=== PATIENT | male | born 1965 | race African-American/Black ===

== ENCOUNTER → 2020-08-02 13:40 | Outpatient (CLI) | payer BC, SELFPAY ==
--- NOTE | 2020-08-02 13:44 | CA_ITS ---
APPROVED REPORT EXAM: Comprehensive 2D, Doppler, and color-flow Echocardiogram Chief Scientific Officer: Pallavi Pineda CRT Ht: 6 ft 2 in Wt: 247lbs BSA: 2.38 BP: 174/96 mmHg Indications: CP, ex smoker, HTN, SOB, Abn EKG 2D Dimensions LVOT 2.09 cm (M/F) 1.5-2.5 LVEF (Smith's) 50.10 % M: 52 - 72 LV Volume 134.20 mL M: 62 - 150 LV Volume Index 56.62 mL/m2 M: 34 - 74 M-Mode Dimensions RVDd 3.27 cm (0.9-2.6) LA Diam 4.00 cm (1.9-4.0) LVDd 5.14 cm (3.5-5.7) Ao Diam 3.01 cm (2.0-3.7) LVDs 3.99 cm (3.5-5.7) IVSd 0.99 cm (0.6-1.1) PWd 0.95 cm (0.6-1.1) EF (Teich) 44.80% FS 22.40% EDV (Teich) 126.10 mL ESV (Teich) 69.60 mL LV Diastology E Decel Time 223.00 (160-240 msec) E/A Ratio 1.0 MED E' 8.20 (< 7 cm/sec) E'/MED E' Ratio 7.79 (>14) LAT E' 11.80 (<10 cm/sec) E/LAT E' Ratio 5.42 (>14) Mitral Valve MV E Max Bryan. 64.00 (40-130 cm/s) MV A Velocity 63.00 (40-130 cm/s) E/A Ratio 1.01 MV Decel. Time 223.00 (160-240 ms) MV PHT 65.00 ms Left Ventricle Left atrium is mildly enlarged, left ventricle is normal size, mild concentric left ventricular hypertrophy, visually estimated ejection fraction 55% with no regional wall motion abnormality, grade 1 diastolic dysfunction seen without tissue Doppler evidence of raise left atrial pressure. Right Ventricle Right atrium and right ventricle are qualitatively normal size and contractility. Aortic Valve Aortic valve is minimally thickened and fibrosed. There is no aortic stenosis or aortic insufficiency. Mitral Valve Mitral valve is grossly normal, there is mild mitral regurgitation. Tricuspid Valve Tricuspid valve grossly normal, there is mild tricuspid regurgitation, tricuspid regurgitation jet velocity is inadequate for calculation of the right ventricular systolic pressure. Pulmonic Valve Pulmonic valve is minimally fibrosed, there is no pulmonic stenosis or pulmonic insufficiency. Great Vessels Aortic root is normal size. Pericardium No significant pericardial effusion noted. Conclusion 1. Mildly enlarged left atrium, normal left ventricular size, mild concentric left ventricular hypertrophy, visually estimated ejection fraction 55% with no regional wall motion abnormality, grade 1 diastolic dysfunction seen without tissue Doppler evidence of raise left atrial pressure. 2. Mild mitral and tricuspid regurgitation. 3. No significant pericardial effusion noted. Electronically signed by : Sixto Singh, 08/03/2020 05:50:01
[2020-08-02 15:12] LABS: Chloride 103 mmol/L (98-107); Potassium 3.5 mmoL/L (3.5-5.1); Sodium 141 mmol/L (136-145)
[2020-08-02 15:15] LABS: Anion Gap 13.5 mEq/L (5-15); Blood Urea Nitrogen 13 mg/dl (9-20); Calcium 9.9 mg/dl (8.4-10.2); Carbon Dioxide 28 mmol/L (22.0-30.0); Estimated Glomerular Filt Rate 78 ml/min (>60); GFR (African American) 94 ML/MIN (>60); Glucose 98 mg/dl (74-100)
[2020-08-02 15:25] LABS: NT Pro Brain Natriuretic Pep. 87.2 pg/mL (0-125)
[2020-08-02 15:46] LABS: Free T4 (Free Thyroxine) 0.91 ng/dl (0.78-2.19)
[2020-08-02 15:47] LABS: Thyroid Stimulating Hormone 2.48 uIU/mL (0.465-4.68)
== END ==
PROVIDERS: PCP Family Medicine; Visit Provider Internal Medicine Cardiovascular Disease
DX: R07.9 Chest pain, unspecified (principal); R06.00 Dyspnea, unspecified; I10 Essential (primary) hypertension; R94.31 Abnormal electrocardiogram [ECG] [EKG]; R06.83 Snoring; R40.0 Somnolence; Z87.891 Personal history of nicotine dependence; Z79.899 Other long term (current) drug therapy
CPT/HCPCS: 36415; 80048; 83880; 84439; 84443; 93306; 95806

== ENCOUNTER → 2020-08-22 07:49 | Outpatient (CLI) | payer SELFPAY ==
--- NOTE | 2020-08-22 07:49 | CT_ITS ---
PROCEDURE: CT HEART W CALCIUM SCORE CLINICAL HISTORY: chest pain 55-year-old COMPARISON: No exams were available for comparison TECHNIQUE: Axial images obtained with sagittal and coronal reformats. All CT scans at the facility use one or more dose reduction, viz: automated exposure control, ma/kV adjustment per patient size (including targeted exams where dose is matched to indication, i.e. head), or iterative reconstruction technique. FINDINGS: Overall coronary Artery Calcium Score is 0. All vessels surveyed with computer analysis, no calcified plaque No identifiable atherosclerotic plaque.-This corresponds with very low cardiovascular disease risk but IMPRESSION: Overall coronary Artery Calcium Score is 0. No identifiable calcified the atherosclerotic plaque.-This corresponds with very low cardiovascular disease risk Dictated by: Kris Loyd MD 08/23/2020 14:14 Kris Loyd MD in [place] 08/23/2020 14:14
== END ==
PROVIDERS: PCP Family Medicine; Visit Provider Internal Medicine Cardiovascular Disease
DX: Z13.6 Encounter for screening for cardiovascular disorders (principal); R07.9 Chest pain, unspecified; R06.00 Dyspnea, unspecified; I10 Essential (primary) hypertension; G47.33 Obstructive sleep apnea (adult) (pediatric)
CPT/HCPCS: 75571

== ENCOUNTER → 2022-02-16 10:06 | Outpatient (CLI) | payer BC, SELFPAY ==
[2022-02-16 10:49] LABS: Basophils # 0.1 K/mm3 (0-0.2); Basophils % 1.5 % (0.1-2.0); Eosinophils # 0.1 K/mm3 (0.0-0.4); Eosinophils % 3.7 % (0.1-12.0); Hematocrit 45.8 % (42.0-52.0); Hemoglobin 15.1 g/dL (14.1-18.0); Lymphocytes # 1.2 K/mm3 (0.7-4.5); Lymphocytes % 33.7 % (10-50); Mean Corpuscular Hemoglobin 30.3 pg (27.0-31.2); Mean Corpuscular Volume 91.6 fl (80-94); Mean Platelet Volume 10.1 fl (7.4-10.4); Monocytes # 0.4 K/mm3 (0.1-1.0); Monocytes % 9.9 % (1.7-9.3); Neutrophils # 1.8 K/mm3 (1.8-7.8); Neutrophils % 51.2 % (37.0-80.0); Platelet Count 210 K/mm3 (142-424); Red Cell Distribution Width 13.7 % (11.5-17.5); White Blood Count 3.5 K/mm3 (4.8-10.8)
[2022-02-16 11:16] LABS: Alanine Aminotransferase 42 U/L (12-78); Albumin Level 4.4 g/dl (3.5-5.0); Alkaline Phosphatase 104 U/L (38-126); Anion Gap 10.9 mEq/L (5-15); Aspartate Amino Transferase 42 U/L (17-59); Bilirubin,Indirect 0.5 mg/dL (0.0-0.9); Bilirubin,Total 0.5 mg/dl (0.2-1.3); Bilirubin,Unconjugated 0.8 mg/dL (0.0-1.1); Blood Urea Nitrogen 13 mg/dl (9-20); Calcium 9.5 mg/dl (8.4-10.2); Carbon Dioxide 30 mmol/L (22.0-30.0); Chloride 103 mmol/L (98-107); Chol/HDL Ratio 4.9 (1-3.5); Cholesterol 214 mg/dl (140-200); Estimated Glomerular Filt Rate 87 ml/min (>60); GFR (African American) 106 ML/MIN (>60); Glucose 106 mg/dl (74-100); HDL Cholesterol 44 mg/dl (40-60); Magnesium 1.9 mg/dl (1.6-2.3); Potassium 3.9 mmoL/L (3.5-5.1); Sodium 140 mmol/L (136-145); Total Protein,Serum 7.1 g/dl (6.3-8.2); Triglycerides 104 mg/dl (30-150); VLDL Cholesterol 21 mg/dL (0-40)
[2022-02-16 11:35] LABS: Free T4 (Free Thyroxine) 0.97 ng/dl (0.78-2.19)
[2022-02-16 11:47] LABS: Thyroid Stimulating Hormone 1.93 uIU/mL (0.465-4.68)
== END ==
PROVIDERS: PCP Family Medicine; Visit Provider Internal Medicine Cardiovascular Disease
DX: I10 Essential (primary) hypertension (principal); Z79.899 Other long term (current) drug therapy
CPT/HCPCS: 36415; 80048; 80061; 80076; 83735; 84439; 84443; 85025

== ENCOUNTER → 2023-05-02 10:04 | Outpatient (CLI) | payer BC, SELFPAY ==
[2023-05-02 10:30] LABS: Basophils % 0.7 % (0.1-2.0); Eosinophils # 0.1 K/mm3 (0.0-0.4); Eosinophils % 4.4 % (0.1-12.0); Hematocrit 46.4 % (42.0-52.0); Hemoglobin 15.5 g/dL (14.1-18.0); Lymphocytes # 0.9 K/mm3 (0.7-4.5); Lymphocytes % 29.2 % (10-50); Mean Corpuscular HGB Conc 33.4 g/dL (31.8-35.4); Mean Corpuscular Hemoglobin 29.7 pg (27.0-31.2); Mean Corpuscular Volume 88.9 fl (80-94); Mean Platelet Volume 10.4 fl (7.4-10.4); Monocytes # 0.3 K/mm3 (0.1-1.0); Monocytes % 10.3 % (1.7-9.3); Neutrophils # 1.7 K/mm3 (1.8-7.8); Neutrophils % 55.3 % (37.0-80.0); Platelet Count 196 K/mm3 (142-424); Red Blood Count 5.22 M/mm3 (4.60-6.20); Red Cell Distribution Width 13.6 % (11.5-17.5); White Blood Count 3.1 K/mm3 (4.8-10.8)
[2023-05-02 10:46] LABS: Chloride 106 mmol/L (98-107); Sodium 140 mmol/L (136-145)
[2023-05-02 10:47] LABS: Potassium 3.7 mmoL/L (3.5-5.1)
[2023-05-02 10:49] LABS: Alanine Aminotransferase 43 U/L (12-78); Albumin Level 4.2 g/dl (3.5-5.0); Alkaline Phosphatase 118 U/L (38-126); Anion Gap 11.7 mEq/L (5-15); Aspartate Amino Transferase 38 U/L (17-59); Bilirubin,Direct 0.3 mg/dl (0.0-0.4); Bilirubin,Indirect 0.3 mg/dL (0.0-0.9); Bilirubin,Total 0.6 mg/dl (0.2-1.3); Bilirubin,Unconjugated 0.3 mg/dL (0.0-1.1); Blood Urea Nitrogen 13 mg/dl (9-20); Calcium 9.5 mg/dl (8.4-10.2); Carbon Dioxide 26 mmol/L (22.0-30.0); Cholesterol 224 mg/dl (140-200); Estimated Glomerular Filt Rate 77 ml/min (>60); GFR (African American) 93 ML/MIN (>60); Glucose 109 mg/dl (74-100); Triglycerides 127 mg/dl (30-150); VLDL Cholesterol 25 mg/dL (0-40)
[2023-05-02 10:50] LABS: Chol/HDL Ratio 4.1 (1-3.5); HDL Cholesterol 54 mg/dl (40-60)
[2023-05-02 11:01] LABS: Direct LDL Cholesterol 130.76 mg/dL (100-129)
[2023-05-02 11:06] LABS: Free T4 (Free Thyroxine) 0.98 ng/dl (0.78-2.19)
[2023-05-02 11:21] LABS: Thyroid Stimulating Hormone 1.49 uIU/mL (0.465-4.68)
== END ==
PROVIDERS: Visit Provider Internal Medicine
DX: R06.00 Dyspnea, unspecified (principal); I11.9 Hypertensive heart disease without heart failure; E11.9 Type 2 diabetes mellitus without complications; I63.9 Cerebral infarction, unspecified; Z87.891 Personal history of nicotine dependence
CPT/HCPCS: 36415; 80048; 80061; 80076; 84439; 84443; 85025

== ENCOUNTER → 2023-05-08 08:22 | Outpatient (CLI) | payer BC, SELFPAY | PROVIDERS: Visit Provider Internal Medicine | DX: G47.33 Obstructive sleep apnea (adult) (pediatric) (principal); R06.83 Snoring; R40.0 Somnolence | CPT/HCPCS: G0399 ==

== ENCOUNTER → 2023-06-11 06:54 | Outpatient (CLI) | payer BC, SELFPAY ==
[2023-06-11 07:45] LABS: Glucose,Fasting 114 mg/dl (74-100); Hemoglobin A1C 5.4 % (4.0-6.0)
[2023-06-11 08:17] LABS: Anion Gap 11.7 mEq/L (5-15); Blood Urea Nitrogen 12 mg/dl (9-20); Calcium 9.6 mg/dl (8.4-10.2); Carbon Dioxide 29 mmol/L (22.0-30.0); Chloride 103 mmol/L (98-107); Estimated Glomerular Filt Rate 77 ml/min (>60); GFR (African American) 93 ML/MIN (>60); Glucose 109 mg/dl (74-100); Potassium 3.7 mmoL/L (3.5-5.1); Sodium 140 mmol/L (136-145)
[2023-06-11 09:34] LABS: Glucose 1 Hour 138 mg/dL (74-100)
[2023-06-11 10:21] LABS: Glucose 2 Hour 109 mg/dL (74-100)
== END ==
PROVIDERS: Visit Provider Nurse Practitioner Family
DX: R73.9 Hyperglycemia, unspecified (principal)
CPT/HCPCS: 36415; 80048; 82951; 83036

== ENCOUNTER 2024-09-23 10:50 | Observation (INO) | payer BC, SELFPAY ==
[2024-09-23] VITALS (21 sets, daily range): BP systolic 121–147; BP diastolic 62–93; PULSE 57–120; RESP 16–20; TEMP 36.4–37.1; O2SAT 92–100; BMI 28.2
--- NOTE | 2024-09-23 11:06 | HMH.PHAINT1 ---
Pharmacy Intervention Comments: MEDICATION RECONCILIATION COMPLETED ON PATIENT USING EXTERNAL FILL HISTORY FROM PHARMACY. -ANGEL MCMILLAN, TESSD
--- NOTE | 2024-09-23 11:07 | P.CONCA_ITS ---
History of Present Illness History of Present Illness Consult date: 09/23/24 Requesting physician: Milton Snyder Consult reason: chest pain Chief complaint: unstable angina Additional Medical History:: 1. History of hypertension A. Echocardiogram, 07/2020, EF 55% with mild LAE, mild concentric LVH, grade 1 diastolic dysfunction. Mild MR/TR. 2. Remote (30 years ago) history of tobacco use of only 1 year or less 3. SOREN 4. History of coronary calcium score of 0 in 2019 5. Status post cholecystectomy History of present illness: 59-year-old black male presented to [facility] early this morning due to awakening for left-sided chest pain. He has had some intermittent chest discomfort over the last week with separate issues of dizzin ess likely related to low blood pressure (systolic pressure in the 90s). He has had some reflux or heartburn symptoms recently for which he is restarted his omeprazole. He also relates recent hematology appointment due to chronic low white blood cell count. There is a question of whether he will need a bone marrow biopsy or not. Troponins at [facility] noted to be normal with EKG showing no acute ST segment changes. Patient transferred to [facility] for consideration of cardiac catheterization. [facility] Disclaimer: The information contained in this section may have been updated after the patient was seen, as this information can be updated by other users. Medical History Hyperglycemia Daytime somnolence Snoring Abnormal EKG HTN (hypertension) Initially elevated, normal tensive at home, active follow-up with [facility] cardiology Ex-smoker Dyspnea Chest pain Surgical History History of cholecystectomy Family History Other Cancer Coronary artery disease Diabetes Heart attack Hyperlipidemia Hypertension Social History Smoking Status: Former smoker alcohol intake: current alcohol intake frequency: other substance use type: denies use current occupational status: employed Travel in the last 8 weeks: Inside the [place] household members: other housing: house marital status: Have you lived/traveled outside US in past 30 days?: No Contact w/someone who lives/traveled outside US past 30 days?: No Exposure to someone with infectious disease in past 14 days?: No Do you have a fever (greater than 100.4 F or 38 C)?: No Have you tested positive for COVID-19: No Exposed to someone with COVID-19 in past 14 days?: No Do you have a sore throat?: No Do you have a cough?: No Do you have any weakness?: No Do you have any diarrhea?: No Are you experiencing any unusual bleeding?: No Do you have any muscle aches/pain?: No Do you have any abdominal pain?: No Are you experiencing loss of taste or smell?: No Review of Systems Review of Systems Review of systems:: pertinent systems reviewed and negative unless documented below *Cardiovascular Cardiovascular: Reports chest pain and Denies dyspnea *Respiratory Respiratory: Denies dyspnea *Gastrointestinal Gastrointestinal: Reports heartburn Exam Data for Last 24 hours Vital signs and Labs for Last 24 Hours: Temp Pulse Resp BP Pulse Ox O2 Del Method 98.0 F 74 17 140/93 H 99 Room Air 09/23/24 11:00 09/23/24 11:00 09/23/24 11:00 09/23/24 11:00 09/23/24 11:00 09/23/24 11:00 I & O for Last 24 hours: Intake & Output 09/20/24 09/21/24 09/22/24 09/23/24 11:59 11:59 11:59 11:59 Weight 220 lb 1 oz Constitutional Constitutional: no acute distress *Routine Respiratory Exam Respiratory: Present CTA bilaterally; Absent rhonchi or wheezes *Routine Cardiovascular Exam Cardiovascular: Present RRR; Absent murmur, gallop or rubs *Routine Extremities Exam Extremities: Absent edema *Routine Neurological Exam Neurological: Present alert, oriented X3 and CN II-XII intact Meds Home Medications and Allergies Home Medications ?Medication ?Instructions ?Recorded ?Confirmed ?Type cholestyramine (with sugar) 4 gram 1 ea PO DAILY 04/01/24 09/23/24 History powder for susp in a packet bisoprolol fumarate 5 mg tablet 5 mg PO DAILY #90 tabs 06/10/24 09/23/24 Rx valsartan 320 1 tab PO DAILY #90 tabs 06/10/24 09/23/24 Rx mg-hydrochlorothiazide 25 mg tablet (Diovan HCT) amlodipine 5 mg tablet 5 mg PO DAILY #90 tabs 06/11/24 09/23/24 Rx omeprazole 40 mg capsule,delayed 40 mg PO DAILY #90 caps 09/21/24 09/23/24 Rx release New Prescriptions to Start Prescriptions: Allergies Allergy/AdvReac Type Severity Reaction Status Date / Time lisinopril AdvReac Severe Verified 04/01/24 07:25 Assessment and Plan *Assessment and plan (1) Hx of unstable angina: Status: Acute Category: Medical Code(s): Z86.79 - Personal history of other diseases of the circulatory system (2) Abnormal EKG: Status: Acute Category: Medical Code(s): R94.31 - Abnormal electrocardiogram [ECG] [EKG] (3) HTN (hypertension): Problem Comment: Initially elevated, normal tensive at home, active follow-up with [facility] cardiology Status: Chronic Qualifiers: Hypertension type: essential hypertension Qualified Code(s): I10 - Essential (primary) hypertension Category: Medical Code(s): I10 - Essential (primary) hypertension (4) SOREN (obstructive sleep apnea): Problem Comment: Mild to moderate SOREN without significant hypoxemia, initially diagnosed 2019, compliant on CPAP with symptomatic improvement, AHI 1.9 Status: Chronic Category: Medical Code(s): G47.33 - Obstructive sleep apnea (adult) (pediatric) Plan 1. Unstable angina despite 2 antianginal medications -Troponins normal x 2 -EKG without acute change -Plan to proceed with cardiac catheterization today 2. Hypertension -Well-controlled with recent low readings, will adjust medication 3. SOREN -CPAP use in the past was minimal 4. Hyperlipidemia, last LDL 130 in 2022 -Check LDL 5. Heartburn -Continue PPI therapy Cardiac catheterization today Echo today Further recommendations to follow
--- NOTE | 2024-09-23 11:21 | CA_ITS ---
APPROVED REPORT EXAM: Comprehensive 2D, Doppler, and color-flow Echocardiogram Coding And Reimbursement Specialist: Gloria Owens RT(R) Ht: 6 ft 2 in Wt: 220lbs BSA: 2.26 BP: 140/93 mmHg Indications: CP, ex smoker, HTN, hyperlipidemia, SOREN 2D Dimensions LVEF (Smith's) 57.80 % M: 52 - 72 LV Volume 114.70 mL M: 62 - 150 LV Volume Index 50.8 mL/m2 M: 34 - 74 LA Volume 30.20 mL LA Volume Index 13.36 mL/m2 (M/F) 16-34 EF AP4 56.20 % EF AP2 66.0 % EF BP 57.8 % GL Strain -19.2 % M-Mode Dimensions RVDd 3.26 cm (0.9-2.6) LA Diam 3.66 cm (1.9-4.0) LVDd 4.85 cm (3.5-5.7) LVDs 3.52 cm (3.5-5.7) IVSd 0.83 cm (0.6-1.1) PWd 0.76 cm (0.6-1.1) EF (Teich) 53.20% FS 27.40% EDV (Teich) 110.20 mL ESV (Teich) 51.60 mL LV Diastology E Decel Time 217 (160-240 msec) E/A Ratio 0.8 Mitral Valve MV E Max Bryan. 60.0 (40-130 cm/s) MV A Velocity 77.0 (40-130 cm/s) E/A Ratio 0.78 MV PHT 63.0 ms Left Ventricle The left ventricle is normal size. The left ventricular systolic function is normal. The left ventricular ejection fraction is within the normal range. There is increased LV wall thickness. There is normal LV segmental wall motion. Transmitral Doppler flow pattern suggests impaired LV relaxation. LVEF is 60%. Right Ventricle The right ventricle is normal size. The right ventricular systolic function is normal. Atria The left atrium size is normal. The right atrium size is normal. There is no Doppler evidence of interatrial shunt. Aortic Valve The aortic valve is mildly thickened. There is no aortic valvular stenosis. No aortic regurgitation is present. Mitral Valve The mitral valve is normal in structure. No evidence of mitral valve stenosis. There is no mitral valve regurgitation noted. Tricuspid Valve The tricuspid valve leaflets are thin and pliable. Trace tricuspid regurgitation. There is insufficient TR jet to estimate RVSP. Pulmonic Valve The pulmonary valve is normal in structure. Trace pulmonic regurgitation. Great Vessels The aortic root is normal in size. The ascending aorta is not well-visualized. IVC is normal in size and collapses >50% with inspiration. Pericardium There is no pericardial effusion. Other Information Study Quality: Adequate Conclusion Normal biventricular systolic function. No significant valvular stenosis or regurgitation. Electronically signed by : Randa Denson MD 09/23/2024 13:00:56
[2024-09-23 11:53] LABS: Basophils % 0.6 % (0.1-2.0); Eosinophils % 0.3 % (0.1-12.0); Hematocrit 42.3 % (42.0-52.0); Hemoglobin 14.7 g/dL (14.1-18.0); Lymphocytes # 0.8 K/mm3 (0.7-4.5); Lymphocytes % 23.4 % (10-50); Mean Corpuscular HGB Conc 34.8 g/dL (31.8-35.4); Mean Corpuscular Hemoglobin 29.5 pg (27.0-31.2); Mean Corpuscular Volume 84.9 fl (80-94); Mean Platelet Volume 11.4 fl (7.4-10.4); Monocytes # 0.3 K/mm3 (0.1-1.0); Monocytes % 9.6 % (1.7-9.3); Neutrophils # 2.3 K/mm3 (1.8-7.8); Neutrophils % 65.8 % (37.0-80.0); Platelet Count 227 K/mm3 (142-424); Red Blood Count 4.98 M/mm3 (4.60-6.20); Red Cell Distribution Width 12.6 % (11.5-17.5); White Blood Count 3.6 K/mm3 (4.8-10.8)
[2024-09-23 12:12] LABS: Anion Gap 13.4 mEq/L (5-15); Blood Urea Nitrogen 15 mg/dl (9-20); Calcium 9.6 mg/dl (8.4-10.2); Carbon Dioxide 27 mmol/L (22.0-30.0); Chloride 103 mmol/L (98-107); Creatinine Clearance Estimated 126 mL/min (50-200); Estimated Glomerular Filt Rate 87 ml/min (>60); GFR (African American) 105 ML/MIN (>60); Glucose 103 mg/dl (74-100); Potassium 3.4 mmoL/L (3.5-5.1); Sodium 140 mmol/L (136-145)
--- NOTE | 2024-09-23 12:17 | IR_ITS ---
APPROVED REPORT Patient Location: Inpatient Direct Mail Manager: Santiago Mohan, RT (R) PROCEDURES Left heart catheterization Left ventriculogram Selective coronary angiogram INDICATION Unstable angina Informed consent was obtained prior to the procedure. COMPLICATIONS NONE Estimated Blood Loss: LESS THAN 10 ML TECHNIQUE One percent lidocaine used to anesthetize the right anterior aspect of the wrist. The right radial artery was accessed via the Seldinger technique. A 6 Romanian sheath was placed in the right radial artery. 2.5 mg of Verapamil, 800 mcg of nitroglycerin, 1mg Lidocaine and 5000 U Heparin were given through the arterial sheath. The 6 Romanian JL 3 was also used to perform left heart catheterization, left ventriculogram and selective coronary angiogram. At the end of the procedure the sheath was removed good hemostasis was achieved using Traclet band, patient was transferred to the postop holding area in stable condition. ANGIOGRAPHIC RESULTS The left main artery Normal The left anterior descending artery Normal The circumflex artery Dominant normal The right coronary artery Nondominant normal The MUNOZ ventriculogram reveals Normal 65% The left ventricular end-diastolic pressure 10 mmHg IMPRESSION Normal coronary arteries Normal ejection fraction Normal LVEDP Patient has dilated small bowel on fluoroscopy of the abdomen with colon dilatation. PLAN 1. Patient symptoms almost certainly GI related. Recommend GI consultation Electronically signed by : Rocael Lema MD 09/23/2024 13:28:15
[2024-09-23] MEDS: diphenhydrAMINE 50MG/ML VIAL 50 MG IV (13:08)
[2024-09-23] MEDS: LIDOCAINE 1% 10ML MDV 20 ML IJ (13:08)
[2024-09-23] MEDS: HEPARIN 1,000 UNITS/ML 10ML VIAL (CATH LAB) 10000 UNIT IV (13:08)
[2024-09-23] MEDS: VERAPAMIL 2.5MG/ML 2ML VIAL 2.5 MG IV (13:08)
[2024-09-23] MEDS: HEPARIN 1,000 UNITS/500ML NS (CATH LAB) 3000 UNIT IV (13:09)
[2024-09-23] MEDS: NITROGLYCERIN 800MCG/8ML SYR (CATH LAB) 800 MCG IA (13:09)
[2024-09-23] MEDS: 0.9 % SODIUM CHLORIDE 500 ML 25 ML IV (13:09)
[2024-09-23] MEDS: MIDAZOLAM HCL 1MG/ML 5ML VIAL 1 MG IV (13:15)
[2024-09-23] MEDS: FENTANYL 100MCG/2ML VIAL 50 MCG IV (13:18)
--- NOTE | 2024-09-23 13:41 | CT_ITS ---
FINAL REPORT TECHNIQUE: Axial CT images of the abdomen were obtained with IV contrast only. Coronal and sagittal reformatted images were also obtained. This study was performed with techniques to keep radiation doses as low as reasonably achievable (ALARA). Individualized dose reduction techniques using automated exposure control or adjustment of mA and/or kV according to the patient's size were employed. CLINICAL HISTORY: ileus COMPARISON: None FINDINGS: There is atelectasis of the lung bases. The liver has an unremarkable appearance, without evidence of mass. The gallbladder is surgically absent. There is no evidence of biliary ductal dilatation. The pancreas appears normal. The spleen size is within normal limits. There is no evidence of renal mass or hydronephrosis. There is no evidence of adenopathy. Fluid is seen throughout multiple loops of small bowel which are not significantly enlarged. The appendix is slightly enlarged measuring up to 7 mm in diameter. There is no surrounding inflammatory reaction. The urinary bladder is normal in size and configuration. There is minimal spondylolisthesis of L5 on S1. IMPRESSION: Fluid-filled loops of small bowel without definite obstruction. Appendix at the upper limits of normal in size without definite surrounding inflammation. If there is clinical suspicion for acute appendicitis, repeat exam in 12-24 hours may be of value. Reviewed, Interpreted and Dictated by Shant Hines MD Transcribed by Ashley Alicea Authenticated and [facility]
[2024-09-23 14:08] LABS: Albumin Level 4.6 g/dl (3.5-5.0)
[2024-09-23 14:10] LABS: Bilirubin,Unconjugated 0.4 mg/dL (0.0-1.1)
[2024-09-23 14:11] LABS: Alanine Aminotransferase 38 U/L (12-78); Alkaline Phosphatase 106 U/L (38-126); Aspartate Amino Transferase 35 U/L (17-59); Bilirubin,Direct 0.1 mg/dl (0.0-0.4); Bilirubin,Indirect 0.4 mg/dL (0.0-0.9); Bilirubin,Total 0.5 mg/dl (0.2-1.3); Total Protein,Serum 7.1 g/dl (6.3-8.2)
[2024-09-23] MEDS: IOPAMIDOL-370 (76%);100ML BOTTLE 50 ML IV (14:11)
[2024-09-23 14:24] LABS: Amylase 40 U/L (30-110); Lipase 86 U/L (23-300)
[2024-09-23 14:57] LABS: Prostate Specific Ag, Diagnost 0.711 ng/ml (0.0-4.0)
[2024-09-23] MEDS: SODIUM CHLORIDE 0.9% 10ML SYR (RAD ONLY) 10 ML IV (15:28)
[2024-09-23] MEDS: 0.9 % SODIUM CHLORIDE 50 ML VIAL IV (15:28)
[2024-09-23] MEDS: IOPAMIDOL-370 (76%);100ML BOTTLE 100 ML IV (15:28)
[2024-09-23] MEDS: BREEZA FLAVORED BEVERAGE 500ML BOTTLE (RAD USE ONLY) 1500 ML PO (15:28)
--- NOTE | 2024-09-23 16:55 | P.CONS_ITS ---
History of Present Illness *Admission Date: 09/23/24 *Reason for visit:: Noncardiac chest pain *History of present illness: Mr. Todd is a 59-year-old gentleman who presented with epigastric and lower retrosternal pain and discomfort which was burning. The patient has had some increased belching recently and does have some intermittent early satiety. He did have a cardiac catheterization earlier today which was normal. The pain was deemed to be noncardiac chest pain and probably esophageal or gastric and origin. The patient reports no significant reflux but does get some heartburn. He reports no bloating or nausea. He has had no prior endoscopy. He had cholecystectomy in 2006 or 2007 and did develop some bile acid diarrhea which was controlled with cholestyramine. If he takes this twice daily, he develops constipation/obstipation. He takes this usually every second or third day but does get some incomplete defecation while taking. He has had no weight loss, melena or hematochezia. He did have routine abdominal x-ray that showed what appeared to be mildly dilated loops of small bowel. His subsequent CAT scan showed some fluid-filled loops of small bowel without definite obstruction with the appendix at the upper limit of normal in size without inflammation. He does not have any right lower quadrant abdominal pain. [facility] Disclaimer: The information contained in this section may have been updated after the patient was seen, as this information can be updated by other users. Medical History Hyperglycemia Daytime somnolence Snoring Abnormal EKG HTN (hypertension) Initially elevated, normal tensive at home, active follow-up with [facility] cardiology Ex-smoker Dyspnea Chest pain Surgical History History of cholecystectomy Family History Other Cancer Coronary artery disease Diabetes Heart attack Hyperlipidemia Hypertension Social History (Updated 09/23/24 @ 11:37 by Nanette Still RN) Smoking Status: Former smoker alcohol intake: current alcohol intake frequency: other substance use type: denies use current occupational status: employed Travel in the last 8 weeks: Inside the [place] household members: other housing: house marital status: Have you lived/traveled outside US in past 30 days?: No Contact w/someone who lives/traveled outside US past 30 days?: No Exposure to someone with infectious disease in past 14 days?: No Do you have a fever (greater than 100.4 F or 38 C)?: No Have you tested positive for COVID-19: No Exposed to someone with COVID-19 in past 14 days?: No Do you have a sore throat?: No Do you have a cough?: No Do you have any weakness?: No Are you experiencing any nausea/vomitting?: No Do you have any diarrhea?: No Are you experiencing any unusual bleeding?: No Do you have any muscle aches/pain?: No Do you have any abdominal pain?: No Are you experiencing loss of taste or smell?: No Meds Home Medications and Allergies Home Medications ?Medication ?Instructions ?Recorded ?Confirmed ?Type cholestyramine (with sugar) 4 gram 1 ea PO DAILY 04/01/24 09/23/24 History powder for susp in a packet bisoprolol fumarate 5 mg tablet 5 mg PO DAILY #90 tabs 06/10/24 09/23/24 Rx valsartan 320 1 tab PO DAILY #90 tabs 06/10/24 09/23/24 Rx mg-hydrochlorothiazide 25 mg tablet (Diovan HCT) amlodipine 5 mg tablet 5 mg PO DAILY #90 tabs 06/11/24 09/23/24 Rx omeprazole 40 mg capsule,delayed 40 mg PO DAILY #90 caps 09/21/24 09/23/24 Rx release New Prescriptions to Start Prescriptions: Allergies Allergy/AdvReac Type Severity Reaction Status Date / Time lisinopril AdvReac Severe Verified 04/01/24 07:25 Exam (Inpt) Vital signs and Labs for Last 24 Hours: Temp Pulse Resp BP Pulse Ox O2 Del Method 98.0 F 69 18 129/73 95 Room Air 09/23/24 11:00 09/23/24 13:45 09/23/24 13:45 09/23/24 13:45 09/23/24 13:45 09/23/24 16:24 Laboratory Results - last 24 hr 09/23/24 11:45: WBC 3.6 L, RBC 4.98, Hgb 14.7, Hct 42.3, MCV 84.9, MCH 29.5, MCHC 34.8, RDW 12.6, Plt Count 227, MPV 11.4 H, Neut % (Auto) 65.8, Lymph % (Auto) 23.4, [place] % (Auto) 9.6 H, Eos % (Auto) 0.3, Baso % (Auto) 0.6, Neut # (Auto) 2.3, Lymph # (Auto) 0.8, [place] # (Auto) 0.3, Eos # (Auto) 0.0, Baso # (Auto) 0.0, Sodium 140, Potassium 3.4 L, Chloride 103, Carbon Dioxide 27, Anion Gap 13.4, BUN 15, Creatinine 0.90, Estimated Creat Clear 126, Estimated GFR 87, Est GFR ( Amer) 105, Glucose 103 H, Calcium 9.6 09/23/24 11:48: Total Bilirubin 0.5, Direct Bilirubin 0.1, Conjugated Bilirubin 0.0, Indirect Bilirubin 0.4, Unconjugated Bilirubin 0.4, AST 35, ALT 38, Alkaline Phosphatase 106, Total Protein 7.1, Albumin 4.6, Amylase 40, Lipase 86, Prostate Specific Ag 0.711 I & O for Labs for Last 24 Hours: Intake & Output 09/20/24 09/21/24 09/22/24 09/23/24 23:59 23:59 23:59 23:59 Output Total 0 / 0 Balance 0 / 0 Weight 220 lb 1 oz GI: Present soft Comments:: Normoactive bowel sounds, soft, mild tenderness in epigastrium, no masses, no rebound or guarding, no hernias Results Labs 09/23/24 11:45 09/23/24 11:45 Labs: Laboratory Results - last 24 hr 09/23/24 11:45: WBC 3.6 L, RBC 4.98, Hgb 14.7, Hct 42.3, MCV 84.9, MCH 29.5, MCHC 34.8, RDW 12.6, Plt Count 227, MPV 11.4 H, Neut % (Auto) 65.8, Lymph % (Auto) 23.4, [place] % (Auto) 9.6 H, Eos % (Auto) 0.3, Baso % (Auto) 0.6, Neut # (Auto) 2.3, Lymph # (Auto) 0.8, [place] # (Auto) 0.3, Eos # (Auto) 0.0, Baso # (Auto) 0.0, Sodium 140, Potassium 3.4 L, Chloride 103, Carbon Dioxide 27, Anion Gap 13.4, BUN 15, Creatinine 0.90, Estimated Creat Clear 126, Estimated GFR 87, Est GFR ( Amer) 105, Glucose 103 H, Calcium 9.6 09/23/24 11:48: Total Bilirubin 0.5, Direct Bilirubin 0.1, Conjugated Bilirubin 0.0, Indirect Bilirubin 0.4, Unconjugated Bilirubin 0.4, AST 35, ALT 38, Alkaline Phosphatase 106, Total Protein 7.1, Albumin 4.6, Amylase 40, Lipase 86, Prostate Specific Ag 0.711 Assessment and Plan *Assessment and plan (1) Non-cardiac chest pain: Status: Acute Category: Medical Code(s): R07.89 - Other chest pain (2) Epigastric pain: Status: Acute Category: Medical Code(s): R10.13 - Epigastric pain (3) Dyspepsia: Status: Acute Category: Medical Code(s): R10.13 - Epigastric pain Plan 1. Noncardiac chest pain with dyspepsia. He does have some dilated loops of small bowel and does have some obstipation. I do suspect that he is having some bile reflux type dyspepsia with reflux and esophageal spasm. I did discuss diagnostic evaluation and endoscopy. If he remains in hospital, I would recommend EGD tomorrow for further evaluation to rule out peptic disease (peptic ulcer disease or gastritis) or hiatal hernia and reflux esophagitis. We will discuss treatment options subsequent to endoscopy.
--- NOTE | 2024-09-23 17:10 | PC.NURSE ---
AOX4, TOLERATING ROOM AIR. NO COMPLAINTS OF CHEST PAIN SINCE ARRIVAL TO FLOOR. LEFT HEART CATH RADIAL APPROACH NO STENTS PLACED TODAY.
--- NOTE | 2024-09-23 17:28 | P.HP_ITS ---
History of Present Illness *Admission Date: 09/23/24 *History of present illness: Bony Todd is a 59-year-old male with a medical history significant for hypertension, GERD who presented as a transfer from [facility] for suspected unstable angina. He states he has been having epigastric, left-sided chest aching/burning over the past week which have worsened over the past 2 days. Denies radiation of the left shoulder, jaw. Denies nausea/vomiting. He states he has had a history of acid reflux and had been on omeprazole but self discontinued needed a few years ago, but restarted a few days ago with moderate improvement in symptoms. He states he had a large, greasy meal last night and soon thereafter had significant epigastric/chest pain and presented to the ED at [facility]. Workup there did not show significant EKG changes, or troponinemia. However given history of hypertension and very remote history of smoking, symptoms were deemed to be cardiac in nature and LHC was recommended. However, patient requested he be transferred to this facility given that he preferred Dr. Lema. LHC performed without evidence of coronary artery disease. GI was therefore consulted by cardiology. From Dr. Hubbard note, gastroenterology: Mr. Todd is a 59-year-old gentleman who presented with epigastric and lower retrosternal pain and discomfort which was burning. The patient has had some increased belching recently and does have some intermittent early satiety. He did have a cardiac catheterization earlier today which was normal. The pain was deemed to be noncardiac chest pain and probably esophageal or gastric and origin. The patient reports no significant reflux but does get some heartburn. He reports no bloating or nausea. He has had no prior endoscopy. He had cholecystectomy in 2006 or 2007 and did develop some bile acid diarrhea which was controlled with cholestyramine. If he takes this twice daily, he develops constipation/obstipation. He takes this usually every second or third day but does get some incomplete defecation while taking. He has had no weight loss, melena or hematochezia. He did have routine abdominal x-ray that showed what appeared to be mildly dilated loops of small bowel. His subsequent CAT scan showed some fluid-filled loops of small bowel without definite obstruction with the appendix at the upper limit of normal in size without inflammation. He does not have any right lower quadrant abdominal pain. [facility] Disclaimer: The information contained in this section may have been updated after the renetta tejeda was seen, as this information can be updated by other users. Medical History Hyperglycemia Daytime somnolence Snoring Abnormal EKG HTN (hypertension) Initially elevated, normal tensive at home, active follow-up with [facility] cardiology Ex-smoker Dyspnea Chest pain Surgical History History of cholecystectomy Family History Other Cancer Coronary artery disease Diabetes Heart attack Hyperlipidemia Hypertension Social History (Updated 09/23/24 @ 11:37 by Nanette Still RN) Smoking Status: Former smoker alcohol intake: current alcohol intake frequency: other substance use type: denies use current occupational status: employed Travel in the last 8 weeks: Inside the [place] household members: other housing: house marital status: Have you lived/traveled outside US in past 30 days?: No Contact w/someone who lives/traveled outside US past 30 days?: No Exposure to someone with infectious disease in past 14 days?: No Do you have a fever (greater than 100.4 F or 38 C)?: No Have you tested positive for COVID-19: No Exposed to someone with COVID-19 in past 14 days?: No Do you have a sore throat?: No Do you have a cough?: No Do you have any weakness?: No Are you experiencing any nausea/vomitting?: No Do you have any diarrhea?: No Are you experiencing any unusual bleeding?: No Do you have any muscle aches/pain?: No Do you have any abdominal pain?: No Are you experiencing loss of taste or smell?: No Other Medical History Have you received the Flu Vaccine for this season: Yes Have you received the Pneumonia Vaccine: No Meds Home Medications and Allergies Home Medications ?Medication ?Instructions ?Recorded ?Confirmed ?Type cholestyramine (with sugar) 4 gram 1 ea PO DAILY 04/01/24 09/23/24 History powder for susp in a packet bisoprolol fumarate 5 mg tablet 5 mg PO DAILY #90 tabs 06/10/24 09/23/24 Rx valsartan 320 1 tab PO DAILY #90 tabs 06/10/24 09/23/24 Rx mg-hydrochlorothiazide 25 mg tablet (Diovan HCT) amlodipine 5 mg tablet 5 mg PO DAILY #90 tabs 06/11/24 09/23/24 Rx omeprazole 40 mg capsule,delayed 40 mg PO DAILY #90 caps 09/21/24 09/23/24 Rx release New Prescriptions to Start Prescriptions: Allergies Allergy/AdvReac Type Severity Reaction Status Date / Time lisinopril AdvReac Severe Verified 04/01/24 07:25 Exam Data for Last 24 hours Vital signs and Labs for Last 24 Hours: Temp Pulse Resp BP Pulse Ox O2 Del Method 98.7 F 64 18 134/70 95 Room Air 09/23/24 16:45 09/23/24 16:45 09/23/24 16:45 09/23/24 16:45 09/23/24 13:45 09/23/24 16:24 Laboratory Results - last 24 hr 09/23/24 11:45: WBC 3.6 L, RBC 4.98, Hgb 14.7, Hct 42.3, MCV 84.9, MCH 29.5, MCHC 34.8, RDW 12.6, Plt Count 227, MPV 11.4 H, Neut % (Auto) 65.8, Lymph % (Auto) 23.4, [place] % (Auto) 9.6 H, Eos % (Auto) 0.3, Baso % (Auto) 0.6, Neut # (Auto) 2.3, Lymph # (Auto) 0.8, [place] # (Auto) 0.3, Eos # (Auto) 0.0, Baso # (Auto) 0.0, Sodium 140, Potassium 3.4 L, Chloride 103, Carbon Dioxide 27, Anion Gap 13.4, BUN 15, Creatinine 0.90, Estimated Creat Clear 126, Estimated GFR 87, Est GFR ( Amer) 105, Glucose 103 H, Calcium 9.6 09/23/24 11:48: Total Bilirubin 0.5, Direct Bilirubin 0.1, Conjugated Bilirubin 0.0, Indirect Bilirubin 0.4, Unconjugated Bilirubin 0.4, AST 35, ALT 38, Alkaline Phosphatase 106, Total Protein 7.1, Albumin 4.6, Amylase 40, Lipase 86, Prostate Specific Ag 0.711 I & O for Last 24 hours: Intake & Output 09/20/24 09/21/24 09/22/24 09/23/24 23:59 23:59 23:59 23:59 Output Total 0 / 0 Balance 0 / 0 Weight 99.819 kg Constitutional Constitutional: no acute distress *Routine HEENT Exam Head: Present normocephalic Eye: Present EOMI and PERRL ENT: Present mucous membranes moist *Routine Neck Exam Neck: Present supple; Absent lymphadenopathy *Routine Respiratory Exam Respiratory: Present CTA bilaterally *Routine Cardiovascular Exam Cardiovascular: Present RRR *Routine Abdominal Exam Abdominal: Present soft and normoactive bowel sounds; Absent tenderness *Routine Rectal Exam Rectal:: deferred *Routine Genitalia Exam Genitalia:: deferred *Routine Extremities Exam Extremities: Absent cyanosis, clubbing or edema *Routine Skin Exam Skin: Present warm; Absent rash *Routine Neurological Exam Neurological: Present alert and oriented X3 Assessment and Plan *Assessment and plan (1) Dyspepsia: Status: Acute Category: Medical Code(s): R10.13 - Epigastric pain Plan Bony Todd is a 59-year-old male with a medical history significant for hypertension, GERD who presented as a transfer from [facility] for suspected unstable angina. He states he has been having epigastric, left-sided chest aching/burning over the past week which have worsened over the past 2 days. Denies radiation of the left shoulder, jaw. Denies nausea/vomiting. He states he has had a history of acid reflux and had been on omeprazole but self discontinued needed a few years ago, but restarted a few days ago with moderate improvement in symptoms. He states he had a large, greasy meal last night and soon thereafter had significant epigastric/chest pain and presented to the ED at [facility]. Workup there did not show significant EKG changes, or troponinemia. However given history of hypertension and very remote history of smoking, symptoms were deemed to be cardiac in nature and LHC was recommended. However, patient requested he be transferred to this facility given that he preferred Dr. Lema. LHC performed without evidence of coronary artery disease. GI was therefore consulted by cardiology. #Chest/epigastric pain #Suspected dyspepsia, GERD flare ? No pains at this time. S/p LHC without evidence of coronary artery disease. ? GI consulted by cardiology, who recommended EGD in the morning. N.p.o. at midnight. ? History is most consistent with GI etiology at this time, likely GERD flare and/or underlying PUD. Hemoglobin stable 14.7. Vital signs stable. No evidence of bleeding. ? Patient takes cholestyramine for apparent abdominal cramping, which may be contributing to symptoms as well. Will hold for now ? Continue home PPI. Started sucralfate. GI cocktail as needed. #Hypertension ? Resume home amlodipine 5 mg, hydrochlorothiazide 25 mg, bisoprolol 5 mg. Hold home valsartan per cardiology recommendations due to correlation with leukopenia. #History of leukopenia ? WBC 3.6, consistent with chronic findings. ? Following with hematology, considering bone marrow biopsy. ? Follow-up B12, folate, iron studies. ? Follow-up hepatitis panel, respiratory panel. Full code DVT prophylaxis: Patient is ambulatory
[2024-09-23 19:55] LABS: Folate > 20.00 ng/mL
[2024-09-23 20:06] LABS: Adenovirus,PCR Not Detected (NotDetected); Bordetella Pertussis Not Detected (NotDetected); Chlamydophila Pneumoniae, PCR Not Detected (NotDetected); Coronavirus 19, PCR Not Detected (NotDetected); Coronavirus 229E Not Detected (NotDetected); Coronavirus NL63 Not Detected (NotDetected); Coronavirus OC43 Not Detected (NotDetected); Coronovirus HKU1,PCR Not Detected (NotDetected); Human Metapneumovirus Not Detected (NotDetected); Influenza A, PCR Not Detected (NotDetected); Influenza AH1, 2009 Not Detected (NotDetected); Influenza AH1, PCR Not Detected (NotDetected); Influenza AH3,PCR Not Detected (NotDetected); Influenza B, PCR Not Detected (NotDetected); Mycoplasma Pneumoniae, PCR Not Detected (NotDetected); Parainfluenza 1, PCR Not Detected (NotDetected); Parainfluenza 2, PCR Not Detected (NotDetected); Parainfluenza 3, PCR Not Detected (NotDetected); Parainfluenza 4, PCR Not Detected (NotDetected); Respiratory Syncytial Virus Not Detected (NotDetected); Rhinovirus/Enterovirus Not Detected (NotDetected)
[2024-09-23] MEDS: POTASSIUM CHLORIDE 20MEQ TAB 40 MEQ PO ×2 (20:49→23:06)
[2024-09-24] VITALS (11 sets, daily range): BP systolic 130–148; BP diastolic 64–85; PULSE 50–90; RESP 16–18; TEMP 36.3–37.6; O2SAT 97–100; BMI 28.0
--- NOTE | 2024-09-24 06:13 | PC.NURSE ---
Patient is alert and oriented. No complaints throughout the night. Right radial site, dressing CDI. NPO since midnight for procedure today. Ambulatory in room. remains at the bedside. Call light in reach.
[2024-09-24 06:35] LABS: Basophils % 0.5 % (0.1-2.0); Eosinophils # 0.1 K/mm3 (0.0-0.4); Eosinophils % 2.4 % (0.1-12.0); Hematocrit 40.5 % (42.0-52.0); Hemoglobin 13.6 g/dL (14.1-18.0); Lymphocytes % 25.6 % (10-50); Mean Corpuscular HGB Conc 33.6 g/dL (31.8-35.4); Mean Corpuscular Hemoglobin 29.1 pg (27.0-31.2); Mean Corpuscular Volume 86.5 fl (80-94); Mean Platelet Volume 11.8 fl (7.4-10.4); Monocytes # 0.5 K/mm3 (0.1-1.0); Monocytes % 13.6 % (1.7-9.3); Neutrophils # 2.2 K/mm3 (1.8-7.8); Neutrophils % 57.6 % (37.0-80.0); Platelet Count 198 K/mm3 (142-424); Red Blood Count 4.68 M/mm3 (4.60-6.20); White Blood Count 3.8 K/mm3 (4.8-10.8)
[2024-09-24 06:49] LABS: Alanine Aminotransferase 34 U/L (12-78); Albumin/Globulin Ratio 1.7 (1.1-1.8); Alkaline Phosphatase 92 U/L (38-126); Anion Gap 10.8 mEq/L (5-15); Aspartate Amino Transferase 38 U/L (17-59); Bilirubin,Total 0.6 mg/dl (0.2-1.3); Blood Urea Nitrogen 15 mg/dl (9-20); Carbon Dioxide 26 mmol/L (22.0-30.0); Chloride 107 mmol/L (98-107); Chol/HDL Ratio 4.9 (1-3.5); Cholesterol 188 mg/dl (140-200); Creatinine Clearance Estimated 113 mL/min (50-200); Estimated Glomerular Filt Rate 77 ml/min (>60); GFR (African American) 93 ML/MIN (>60); Globulin 2.4 g/dL (1.3-3.2); Glucose 98 mg/dl (74-100); HDL Cholesterol 38 mg/dl (40-60); Potassium 3.8 mmoL/L (3.5-5.1); Sodium 140 mmol/L (136-145); Total Protein,Serum 6.4 g/dl (6.3-8.2); Triglycerides 115 mg/dl (30-150); VLDL Cholesterol 23 mg/dL (0-40)
[2024-09-24 06:59] LABS: Direct LDL Cholesterol 113.41 mg/dL (100-129)
[2024-09-24 07:16] LABS: Thyroid Stimulating Hormone 1.36 uIU/mL (0.465-4.68)
[2024-09-24 08:02] LABS: Free T4 (Free Thyroxine) 0.99 ng/dl (0.78-2.19)
[2024-09-24] MEDS: AMLODIPINE 5MG TABLET 5 MG PO (08:12)
[2024-09-24] MEDS: hydroCHLOROthiazide 25MG TABLET 25 MG PO (08:12)
[2024-09-24] MEDS: BISOPROLOL 5MG TABLET 5 MG PO (08:12)
[2024-09-24 08:54] LABS: Iron 115 ug/dL (49-181)
[2024-09-24 09:04] LABS: Total Iron Binding Capacity 310 ug/dL (261-462)
--- NOTE | 2024-09-24 09:07 | EXP.CARD.PN ---
Subjective Subjective Date: 09/24/24 Time: 09:08 Principal diagnosis: chest pain Interval history: 59 yo BM up in room in NAD. No complaints overnight Waiting to go for EGD this AM. Enterogram showed dilated loops of bowel without definite obstruction Exam Data for Last 24 hours Vital signs and Labs for Last 24 Hours: Temp Pulse Resp BP Pulse Ox O2 Del Method 97.6 F 62 17 140/84 99 Room Air 09/24/24 07:31 09/24/24 07:31 09/24/24 07:31 09/24/24 07:31 09/24/24 07:31 09/24/24 07:31 Laboratory Results - last 24 hr 09/23/24 11:45: WBC 3.6 L, RBC 4.98, Hgb 14.7, Hct 42.3, MCV 84.9, MCH 29.5, MCHC 34.8, RDW 12.6, Plt Count 227, MPV 11.4 H, Neut % (Auto) 65.8, Lymph % (Auto) 23.4, [place] % (Auto) 9.6 H, Eos % (Auto) 0.3, Baso % (Auto) 0.6, Neut # (Auto) 2.3, Lymph # (Auto) 0.8, [place] # (Auto) 0.3, Eos # (Auto) 0.0, Baso # (Auto) 0.0, Sodium 140, Potassium 3.4 L, Chloride 103, Carbon Dioxide 27, Anion Gap 13.4, BUN 15, Creatinine 0.90, Estimated Creat Clear 126, Estimated GFR 87, Est GFR ( Amer) 105, Glucose 103 H, Calcium 9.6, Folate > 20.00 09/23/24 11:48: Total Bilirubin 0.5, Direct Bilirubin 0.1, Conjugated Bilirubin 0.0, Indirect Bilirubin 0.4, Unconjugated Bilirubin 0.4, AST 35, ALT 38, Alkaline Phosphatase 106, Total Protein 7.1, Albumin 4.6, Amylase 40, Lipase 86, Prostate Specific Ag 0.711 09/23/24 20:00: Chlamy pneumoniae PCR Not detected, Adenovirus (PCR) Not detected, B. pertussis DNA (PCR) Not detected, Coronavirus OC43 (PCR) Not detected, Coronavirus HKU1 (PCR) Not detected, Coronavirus 229E (PCR) Not detected, SARS-CoV-2 (PCR) Not detected, Coronavirus NL63 (PCR) Not detected, Human Metapneumovir PCR Not detected, Influenza A (H1) PCR Not detected, Influ A (H1N1/09) PCR Not detected, Influenza A (H3) PCR Not detected, Influenza Type A (PCR) Not detected, Influenza Type B (PCR) Not detected, M. pneumoniae (PCR) Not detected, Parainfluenza 1 (PCR) Not detected, Parainfluenza 2 (PCR) Not detected, Parainfluenza 3 (PCR) Not detected, Parainfluenza 4 (PCR) Not detected, RSV (PCR) Not detected, Entero/Rhino (PCR) Not detected 09/24/24 05:54: WBC 3.8 L, RBC 4.68, Hgb 13.6 L, Hct 40.5 L, MCV 86.5, MCH 29.1, MCHC 33.6, RDW 13.0, Plt Count 198, MPV 11.8 H, Neut % (Auto) 57.6, Lymph % (Auto) 25.6, [place] % (Auto) 13.6 H, Eos % (Auto) 2.4, Baso % (Auto) 0.5, Neut # (Auto) 2.2, Lymph # (Auto) 1.0, [place] # (Auto) 0.5, Eos # (Auto) 0.1, Baso # (Auto) 0.0, Sodium 140, Potassium 3.8, Chloride 107, Carbon Dioxide 26, Anion Gap 10.8, BUN 15, Creatinine 1.00, Estimated Creat Clear 113, Estimated GFR 77, Est GFR ( Amer) 93, Glucose 98, Calcium 9.0, Magnesium 2.0, Iron 115, TIBC 310, Iron Saturation [id number], Total Bilirubin 0.6, AST 38, ALT 34, Alkaline Phosphatase 92, Total Protein 6.4, Albumin 4.0 D, Globulin 2.4, Albumin/Globulin Ratio 1.7, Triglycerides 115, Cholesterol 188, LDL Cholesterol Direct 113.41, VLDL Cholesterol 23, HDL Cholesterol 38 L, Cholesterol/HDL Ratio 4.9 H, TSH 1.36, Free T4 0.99 I & O for Last 24 hours: Intake & Output 01/27/25 01/28/25 01/29/25 01/30/25 11:59 11:59 11:59 11:59 Intake Total 660 / 660 Output Total 0 / 0 Balance 660 / 660 Weight 220 lb 1 oz 218 lb 11.2 oz Constitutional Constitutional: no acute distress *Routine Respiratory Exam Respiratory: Present CTA bilaterally *Routine Cardiovascular Exam Cardiovascular: Present RRR Progress Note: A&P Assessment and plan (1) Dyspepsia: Status: Acute Assessment and Plan Assessment and Plan for All Diagnoses:: 1. Unstable angina despite 2 antianginal medications -Troponins normal x 2 -EKG without acute change -LHC normal. -GI workup in progress 2. Hypertension -Well-controlled with recent low readings per patient, will adjust medication as needed -Discontinue valsartan due to possible correlation with leukopenia 3. SOREN -CPAP use in the past was minimal 4. History of hyperlipidemia, last LDL 130 in 2022 -LDL 113, 08/2024 5. Heartburn -Continue PPI therapy -GI workup in progress. Stable from cardiac standpoint. Home cardiac med recs: amlodipine 5 mg daily (was previously using PRN) bisoprolol 5 mg daily HCTZ 25 mg daily Discontinue valsartan for now due to possible correlation with low WBC Monitor BP at home daily. Follow up in office in 1-2 wks.
[2024-09-24 09:31] LABS: Ferritin 199 ng/ml (17.9-464)
[2024-09-24 10:35] LABS: Hemoglobin A1C 5.5 % (4.0-6.0)
[2024-09-24 10:38] LABS: Vitamin B12 411 pg/mL (239-931)
--- NOTE | 2024-09-24 14:26 | EXP.ANES.CKL ---
[facility] Disclaimer: The information contained in this section may have been updated after the patient was seen, as this information can be updated by other users. Medical History Hyperglycemia Daytime somnolence Snoring Abnormal EKG HTN (hypertension) Initially elevated, normal tensive at home, active follow-up with [facility] cardiology Ex-smoker Dyspnea Chest pain Surgical History History of cholecystectomy Family History Other Cancer Coronary artery disease Diabetes Heart attack Hyperlipidemia Hypertension Social History (Updated 09/23/24 @ 11:37 by Nanette Still RN) Smoking Status: Former smoker alcohol intake: current alcohol intake frequency: other substance use type: denies use current occupational status: employed Travel in the last 8 weeks: [place] the [place] household members: other housing: house marital status: Have you lived/traveled outside US in past 30 days?: No Contact w/someone who lives/traveled outside US past 30 days?: No Exposure to someone with infectious disease in past 14 days?: No Do you have a fever (greater than 100.4 F or 38 C)?: No Have you tested positive for COVID-19: No Exposed to someone with COVID-19 in past 14 days?: No Do you have a sore throat?: No Do you have a cough?: No Do you have any weakness?: No Are you experiencing any nausea/vomitting?: No Do you have any diarrhea?: No Are you experiencing any unusual bleeding?: No Do you have any muscle aches/pain?: No Do you have any abdominal pain?: No Are you experiencing loss of taste or smell?: No [facility] Anesthesia Checklist Patient Identification Patient Identification: Arm Band Structural Data Admitted From: Inpatient Planned Operative Procedure/s: EGD Consent for Planned Operative Procedure(s) Verified: Yes Verified Documents: Surgical Consent and History and Physical NPO Status Verified Time NPO: 00:00 Additional verifications Anesthesia Reactions: No Airway Assessment Mallampati Score:: Class II C-Spine Mobility Assessed: Yes TMJ Mobility Assessed: Yes Dentition: Good Dentition Neurological Assessment Level of Consciousness: Awake, Alert and Appropriate Anesthesia Plan Anesthesia Risk discussed: Yes Anesthesia Plan: Verified ASA Class: II Anesthesia Type: MAC
--- NOTE | 2024-09-24 14:33 | HMH.PROCNOTE ---
[facility] Procedure Note Date: 09/24/24 Time: 14:39 Procedure Note:: Upper Endoscopy Procedure Report: Esophagogastroduodenoscopy with cold biopsies Endoscopost: Forrest Hubbard II, MD Referring Physician: Tim Fierro MD, [address] [place] [address] , [place] [address] Date of Procedure: September 24, 2024 Equipment: Olympus GIF 190 standard upper endoscope Sedation: MAC sedation Indications: Mr. Todd is a 59-year-old gentleman here for diagnostic upper endoscopy. He presented with epigastric and lower retrosternal pain and discomfort which was burning in character. The patient has had some increased belching recently and does have some intermittent early satiety. He did have a cardiac catheterization earlier today which was normal. The pain was deemed to be noncardiac chest pain and probably esophageal or gastric and origin. The patient reports no significant reflux but does get some heartburn. He reports no bloating or nausea. He has had no prior endoscopy. He had cholecystectomy in 2006 or 2007 and did develop some bile acid diarrhea which was controlled with cholestyramine. If he takes this twice daily, he develops constipation/obstipation. He takes this usually every second or third day but does get some incomplete defecation while taking. He has had no weight loss, melena or hematochezia. He did have routine abdominal x-ray that showed what appeared to be mildly dilated loops of small bowel. His subsequent CAT scan showed some fluid-filled loops of small bowel without definite obstruction with the appendix at the upper limit of normal in size without inflammation. He does not have any right lower quadrant abdominal pain. Procedure: Prior to the procedure, a history and physical exam was performed, and patient's medications and allergies were reviewed. The risks, benefits and alternatives of the sedation and procedure were discussed with the patient. All questions were answered and informed consent was obtained. The patient was brought to the procedure room. Patient identification and proposed procedure were verified by the physician and the nurse. The patient was placed in a left lateral decubitus position and the scope was passed under direct vision. Throughout the procedure, the patient's blood pressure, pulse, and oxygen saturations were monitored continuously. The upper GI endoscopy was accomplished without difficulty. The patient tolerated the procedure well. Findings: The scope was passed directly into the upper esophagus and advanced to the third portion of the duodenum. The post bulbar duodenum, ampulla and duodenal bulb were normal with normal mucosa and conniventes. The scope was withdrawn through a normal duodenal bulb and pylorus into the stomach. There was mild to moderate linear reactive gastropathy of the antrum. The remainder of the body and fundus of the stomach were normal. Cold biopsies were taken from the antrum. Upon retroflexion there was no hiatal hernia.. The scope was then withdrawn into the esophagus. There was no evidence of reflux esophagitis or Sifuentes's. There were tertiary contractions and evidence of mild esophageal dysmotility. The remainder of the esophageal mucosa was normal. Impression: 1. Nonerosive GERD with mild esophageal dysmotility 2. Mild to moderate linear reactive gastropathy of antrum with bile reflux Plan: The patient does have functional dyspepsia with some functional GERD and esophageal spasm. I do feel that this is the etiology of his recent symptoms. His CAT scan showed gas-filled loops of small bowel. I do feel that this is related to his obstipation. I suspect most of his symptoms of dyspepsia are related to and driven by lower intestinal gas pressure gradients/high gas pressure buildup resulting in backflow of bile and peptic fluid from the duodenum into the stomach (duodenal reflux). This gas production (carbon dioxide, hydrogen, methane, etc.) from the lower intestinal tract is the byproduct of colonic bacterial fermentation. This colonic fermentation occurs when there is more carbohydrate (dietary starches, sugars and high residue plant fiber) substrate that does not get digested (in the middle or small intestine) or occurs when there is colonic fecal buildup and colonic bacterial overgrowth. This indeed leads to the gas pressure buildup with gas pressure gradients that do drive backflow, reflux and dyspepsia.
--- NOTE | 2024-09-24 16:09 | EXP.DC.SUM ---
General Admission date:: 09/23/24 HPI HPI HPI: Bony Todd is a 59-year-old male with a medical history significant for hypertension, GERD who presented as a transfer from [facility] for suspected unstable angina. He states he has been having epigastric, left-sided chest aching/burning over the past week which have worsened over the past 2 days. Denies radiation of the left shoulder, jaw. Denies nausea/vomiting. He states he has had a history of acid reflux and had been on omeprazole but self discontinued needed a few years ago, but restarted a few days ago with moderate improvement in symptoms. He states he had a large, greasy meal last night and soon thereafter had significant epigastric/chest pain and presented to the ED at [facility]. Workup there did not show significant EKG changes, or troponinemia. However given history of hypertension and very remote history of smoking, symptoms were deemed to be cardiac in nature and LHC was recommended. However, patient requested he be transferred to this facility given that he preferred Dr. Lema. LHC performed without evidence of coronary artery disease. GI was therefore consulted by cardiology. From Dr. Hubbard note, gastroenterology: Mr. Todd is a 59-year-old gentleman who presented with epigastric and lower retrosternal pain and discomfort which was burning. The patient has had some increased belching recently and does have some intermittent early satiety. He did have a cardiac catheterization earlier today which was normal. The pain was deemed to be noncardiac chest pain and probably esophageal or gastric and origin. The patient reports no significant reflux but does get some heartburn. He reports no bloating or nausea. He has had no prior endoscopy. He had cholecystectomy in 2006 or 2007 and did develop some bile acid diarrhea which was controlled with cholestyramine. If he takes this twice daily, he develops constipation/obstipation. He takes this usually every second or third day but does get some incomplete defecation while taking. He has had no weight loss, melena or hematochezia. He did have routine abdominal x-ray that showed what appeared to be mildly dilated loops of small bowel. His subsequent CAT scan showed some fluid-filled loops of small bowel without definite obstruction with the appendix at the upper limit of normal in size without inflammation. He does not have any right lower quadrant abdominal pain. Exam Data for Last 24 hours Vital signs and Labs for Last 24 Hours: Temp Pulse Resp BP Pulse Ox O2 Del Method 97.3 F L 81 16 131/85 97 Room Air 09/24/24 14:43 09/24/24 14:43 09/24/24 14:43 09/24/24 14:43 09/24/24 14:43 09/24/24 14:43 Laboratory Results - last 24 hr 09/23/24 11:45: Folate > 20.00 09/23/24 20:00: Chlamy pneumoniae PCR Not detected, Adenovirus (PCR) Not detected, B. pertussis DNA (PCR) Not detected, Coronavirus OC43 (PCR) Not detected, Coronavirus HKU1 (PCR) Not detected, Coronavirus 229E (PCR) Not detected, SARS-CoV-2 (PCR) Not detected, Coronavirus NL63 (PCR) Not detected, Human Metapneumovir PCR Not detected, Influenza A (H1) PCR Not detected, Influ A (H1N1/09) PCR Not detected, Influenza A (H3) PCR Not detected, Influenza Type A (PCR) Not detected, Influenza Type B (PCR) Not detected, M. pneumoniae (PCR) Not detected, Parainfluenza 1 (PCR) Not detected, Parainfluenza 2 (PCR) Not detected, Parainfluenza 3 (PCR) Not detected, Parainfluenza 4 (PCR) Not detected, RSV (PCR) Not detected, Entero/Rhino (PCR) Not detected 09/24/24 05:54: WBC 3.8 L, RBC 4.68, Hgb 13.6 L, Hct 40.5 L, MCV 86.5, MCH 29.1, MCHC 33.6, RDW 13.0, Plt Count 198, MPV 11.8 H, Neut % (Auto) 57.6, Lymph % (Auto) 25.6, [place] % (Auto) 13.6 H, Eos % (Auto) 2.4, Baso % (Auto) 0.5, Neut # (Auto) 2.2, Lymph # (Auto) 1.0, [place] # (Auto) 0.5, Eos # (Auto) 0.1, Baso # (Auto) 0.0, Sodium 140, Potassium 3.8, Chloride 107, Carbon Dioxide 26, Anion Gap 10.8, BUN 15, Creatinine 1.00, Estimated Creat Clear 113, Estimated GFR 77, Est GFR ( Amer) 93, Glucose 98, Hemoglobin A1c 5.5, Calcium 9.0, Magnesium 2.0, Iron 115, TIBC 310, Iron Saturation [id number], Ferritin 199, Total Bilirubin 0.6, AST 38, ALT 34, Alkaline Phosphatase 92, Total Protein 6.4, Albumin 4.0 D, Globulin 2.4, Albumin/Globulin Ratio 1.7, Triglycerides 115, Cholesterol 188, LDL Cholesterol Direct 113.41, VLDL Cholesterol 23, HDL Cholesterol 38 L, Cholesterol/HDL Ratio 4.9 H, Vitamin B12 411, TSH 1.36, Free T4 0.99 I & O for Last 24 hours: Intake & Output 09/21/24 09/22/24 09/23/24 09/24/24 23:59 23:59 23:59 23:59 Intake Total 360 / 660 300 / 300 Output Total 0 / 0 0 / 0 Balance 360 / 660 300 / 300 Weight 99.819 kg 99.201 kg Results Data Completed and Pending Labs on day of discharge: Labs from last 24 hours 09/24/24 09/23/24 09/23/24 05:54 20:00 11:45 WBC 3.8 L RBC 4.68 Hgb 13.6 L Hct 40.5 L MCV 86.5 MCH 29.1 MCHC 33.6 RDW 13.0 Plt Count 198 MPV 11.8 H Neut % (Auto) 57.6 Lymph % (Auto) 25.6 [place] % (Auto) 13.6 H Eos % (Auto) 2.4 Baso % (Auto) 0.5 Neut # (Auto) 2.2 Lymph # (Auto) 1.0 [place] # (Auto) 0.5 Eos # (Auto) 0.1 Baso # (Auto) 0.0 Sodium 140 Potassium 3.8 Chloride 107 Carbon Dioxide 26 Anion Gap 10.8 BUN 15 Creatinine 1.00 Estimated Creat Clear 113 Estimated GFR 77 Est GFR ( Amer) 93 Glucose 98 Hemoglobin A1c 5.5 Calcium 9.0 Magnesium 2.0 Iron 115 TIBC 310 Iron Saturation 37.46230 Ferritin 199 Total Bilirubin 0.6 AST 38 ALT 34 Alkaline Phosphatase 92 Total Protein 6.4 Albumin 4.0 D Globulin 2.4 Albumin/Globulin Ratio 1.7 Triglycerides 115 Cholesterol 188 LDL Cholesterol Direct 113.41 VLDL Cholesterol 23 HDL Cholesterol 38 L Cholesterol/HDL Ratio 4.9 H Vitamin B12 411 Folate > 20.00 TSH 1.36 Free T4 0.99 Chlamy pneumoniae PCR Not detected Adenovirus (PCR) Not detected B. pertussis DNA (PCR) Not detected Coronavirus OC43 (PCR) Not detected Coronavirus HKU1 (PCR) Not detected Coronavirus 229E (PCR) Not detected SARS-CoV-2 (PCR) Not detected Coronavirus NL63 (PCR) Not detected Human Metapneumovir PCR Not detected Influenza A (H1) PCR Not detected Influ A (H1N1/09) PCR Not detected Influenza A (H3) PCR Not detected Influenza Type A (PCR) Not detected Influenza Type B (PCR) Not detected M. pneumoniae (PCR) Not detected Parainfluenza 1 (PCR) Not detected Parainfluenza 2 (PCR) Not detected Parainfluenza 3 (PCR) Not detected Parainfluenza 4 (PCR) Not detected RSV (PCR) Not detected Entero/Rhino (PCR) Not detected DS: Diagnosis Discharge Diagnosis (1) Dyspepsia: Status: Acute Code(s): R10.13 - Epigastric pain Meds Home Medications and Allergies Home Medications ?Medication ?Instructions ?Recorded ?Confirmed ?Type bisoprolol fumarate 5 mg tablet 5 mg PO DAILY #90 tabs 06/10/24 09/23/24 Rx valsartan 320 1 tab PO DAILY #90 tabs 06/10/24 09/23/24 Rx mg-hydrochlorothiazide 25 mg tablet (Diovan HCT) amlodipine 5 mg tablet 5 mg PO DAILY #90 tabs 06/11/24 09/23/24 Rx omeprazole 40 mg capsule,delayed 40 mg PO DAILY #90 caps 09/21/24 09/23/24 Rx release New Prescriptions to Start Prescriptions: Allergies Allergy/AdvReac Type Severity Reaction Status Date / Time lisinopril AdvReac Severe Verified 04/01/24 07:25 Discharge Plan Disposition Patient Disposition: Home, Self-Care Condition: Fair Follow up Plan Follow up with: Zhang Miles PA [Physician [employer] Plans Staff Officer] - Enter time for follow up (1-2 weeks) Prescriptions/Medication Reconciliation: Continued bisoprolol fumarate 5 mg tablet 5 mg PO DAILY Qty: 90 3RF valsartan-hydrochlorothiazide [Diovan HCT] 320-25 mg tablet 1 tab PO DAILY Qty: 90 3RF amlodipine 5 mg tablet 5 mg PO DAILY Qty: 90 1RF omeprazole 40 mg capsule,delayed release(DR/EC) 40 mg PO DAILY Qty: 90 1RF Discontinued cholestyramine (with sugar) 4 gram powder in packet 1 ea PO DAILY Patient Comments: DISSOLVE 1 PACKET IN WATER AND DRINK EVERY OTHER DAY. Problem Reconciliation Problems Reviewed?: Yes Patient Discharge Instructions Additional Instructions: Part of your symptoms are likely due to refined sugars, simple starches that may be causing increased gas production in your GI tract. Try to reduce both sugars and simple starches to help alleviate symptoms, and continue omeprazole. Patient Instructions: DI for Angina, DI for Cardiac Catheterization, DI for Surgical Site Infection Print Language: Urdu Providers Primary Care Provider: WM Neel Fierro Admit Provider: Milton Snyder Attending Provider: Milton Snyder
--- NOTE | 2024-09-25 09:54 | SW/DCPLANNER ---
Spoke with patient on the phone. Patient stated that he is doing great. Patient stated that he hasnt called to schedule an upcoming appointment yet with his knowledge management advisor but his daughter will get him one. Patient stated that he has no conerns or questions at this time. Dorian BARRETT Cathead Worker
== END 2024-09-24 16:25 | disposition home or self-care (01) ==
PROVIDERS: Internal Medicine; Internal Medicine Gastroenterology; Physician Assistant; Admitting Provider Student in an Organized Health Care Education/Training Program; PCP Family Medicine; Visit Provider Student in an Organized Health Care Education/Training Program
PROC: 0DJ08ZZ Inspection of Upper Intestinal Tract, Via Natural or Artificial Opening Endoscopic (ICD-10-PCS; CPT 43239; principal; 2024-09-24 14:00)
DX: R94.31 Abnormal electrocardiogram [ECG] [EKG] (principal); I10 Essential (primary) hypertension; G47.33 Obstructive sleep apnea (adult) (pediatric); I20.0 Unstable angina; E78.5 Hyperlipidemia, unspecified; Z87.891 Personal history of nicotine dependence; R07.89 Other chest pain; R10.13 Epigastric pain; K21.9 Gastro-esophageal reflux disease without esophagitis; K22.4 Dyskinesia of esophagus
CPT/HCPCS: 43239; 36415; 74177; 80048; 80053; 80061; 80076; 82150; 82607; 82728; 82746; 83036; 83540; 83550; 83690; 83735; 84153; 84439; 84443; 85025; 87633; 93306; 93458; 99152; C1725; C1760; C1769; G0378; J1200; J1644; J2250; J3010; Q9967